=== PATIENT | male | born 1975 | race Caucasian/White ===

== ENCOUNTER 2022-09-22 14:08 | Emergency (ER) | payer BC ==
--- NOTE | 2022-09-22 14:16 | ERPHSYRPT ---
- History of Present Illness Time Seen by Provider: 09/22/22 14:16 Source: patient Exam Limitations: no limitations Physician History: This is a 47-year-old white male patient who states that this morning he "rolled" his right ankle when he tripped over carpet edge. He has had fractures in that right ankle in the past and he felt a popping sensation when he rolled the ankle. Patient is able to bear weight but it hurts to do so. Method of Injury: twisted Occurred: this morning Quality: constant, aching Severity of Pain-Max: moderate Severity of Pain-Current: mild (To moderate) Lower Extremities Pain: ankle: right Modifying Factors: Improves With: movement Associated Symptoms: popping sensation Allergies/Adverse Reactions: No Known Drug Allergies Allergy (Unverified 09/22/22 14:18) Home Medications: No Reportable Medications [No Reported Medications] 09/22/22 [History] Travel Risk - International Travel Have you traveled outside of the country in past 3 weeks: No - Coronavirus Screening Are you exhibiting any of the following symptoms?: No Close contact with a COVID-19 positive Pt in past 14-21 Days: No - Review of Systems Constitutional: No Symptoms Eyes: No Symptoms Ears, Nose, & Throat: No Symptoms Respiratory: No Symptoms Cardiac: No Symptoms Abdominal/Gastrointestinal: No Symptoms Genitourinary Symptoms: No Symptoms Musculoskeletal: Injury (Right ankle) Skin: No Symptoms Neurological: No Symptoms Psychological: No Symptoms Endocrine: No Symptoms Hematologic/Lymphatic: No Symptoms Immunological/Allergic: No Symptoms All Other Systems: Reviewed and Negative - Past Medical History Pertinent Past Medical History: Yes - Past Surgical History Past Surgical History: Yes - Nursing Vital Signs Nursing Vital Signs: Initial Vital Signs Temperature 97.6 F 09/22/22 14:25 Pulse Rate 101 H 09/22/22 14:25 Respiratory Rate 20 09/22/22 14:25 Blood Pressure 185/97 09/22/22 14:25 O2 Sat by Pulse Oximetry 95 09/22/22 14:25 Pain Scale Pain Intensity 3 - Physical Exam General Appearance: no apparent distress, alert Eyes, Ears, Nose, Throat Exam: normal ENT inspection, moist mucous membranes Neck Exam: normal inspection, non-tender, supple, full range of motion Cardiovascular/Respiratory Exam: chest non-tender, no respiratory distress Gastrointestinal/Abdominal Exam: non-tender Back Exam: normal inspection, normal range of motion, No CVA tenderness, No vertebral tenderness Hips Exam: bilateral: non-tender, normal inspection, normal range of motion, no evidence of injury Legs Exam: bilateral leg: non-tender, normal inspection, normal range of motion, no evidence of injury Knees Exam: bilateral knee: non-tender, normal inspection, normal range of motion, no evidence of injury Ankle Exam: right ankle: bone tenderness (Lateral), soft tissue tenderness (Lateral), swelling (Lateral), left ankle: non-tender, normal inspection, normal range of motion, no evidence of injury Foot Exam: bilateral foot: non-tender, normal inspection, normal range of motion, no evidence of injury Neuro/Tendon Exam: normal sensation, normal motor functions, normal tendon functions, responds to pain, no evidence tendon injury Mental Status Exam: alert, oriented x 3, cooperative Skin Exam: normal color, warm, dry SpO2 Interpretation: normal O2 Delivery: Room Air Ordered Tests: Active Orders 24 hr Category Date Time Status ANKLE (3 VIEWS) Stat Exams 09/22/22 14:26 Completed - Progress Progress Note: 09/22/22 14:43 X-ray right ankle was interpreted by me. I do not appreciate an acute fracture or dislocation. I will wait for the radiologist report. 09/22/22 14:50 After I interpreted the x-ray of the right ankle the radiologist report returns and I reviewed that. There is soft tissue swelling present but no acute fracture or dislocation. This patient's medical issue is of low complexity. This is based on the patient's complaint, history and physical exam findings. Based on the above patient is in need of an x-ray of his right ankle. The results of this was interpreted by me and confirmed by the radiologist that there is no acute fracture or dislocation present. Discharge plan includes ice pack to the area 3 times a day for the next 48 hours. He can use Tylenol and ibuprofen for pain control as well as Stas wrap. He can elevate the right leg above the level of his heart and weightbearing as tolerated. Counseled pt/family regarding: diagnosis, need for follow-up, rad results Medical Desision Making - Independent Historian Additional History obtained from: Spouse - Discussion of managment Reviewed:: Test results Agreed on:: Treatment plan, need for follow-up - Diagnostic Testing Diagnostic test were ordered, analyzed, and reviewed by me: Yes Radiological Interpretation: Interpreted by me - Risk of complications Low Risk: Low risk of morbidity from additional dx testing or treatment - Departure Departure Disposition: Home Clinical Impression: Right ankle sprain Condition: Stable Critical Care Time: No Additional Instructions: Ice pack to area 3 times a day for the next 48 hours. Use Tylenol and ibuprofen for pain control. When not ambulating, keep the right leg elevated above the level of your heart. Use the Stas wrap for compression. If your symptoms persist, follow-up with data collection associate Dr. Wyatt or [facility] orthopedic walk-in clinic. It is open Thursday through Thursday 8 AM to 10 AM. He do not need an appointment. Weightbearing as tolerated
[2022-09-22 14:25] VITALS: BP 185/97; PULSE 101; O2SAT 95
--- NOTE | 2022-09-22 14:48 | XRAY ---
Indication: Pain and swelling following tripping injury. 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 No other bony, articular, or soft tissue abnormalities.
== END 2022-09-22 15:25 | disposition home or self-care (01) ==
LOC: ED 14:08
DX: S93.401A Sprain of unspecified ligament of right ankle, initial encounter (principal); W22.8XXA Striking against or struck by other objects, initial encounter
CPT/HCPCS: 73610; 99282